=== PATIENT | female | born 1985 | race Caucasian/White ===

== ENCOUNTER 2016-12-02 18:27 | Emergency (ER) | payer OTHER ==
[2016-12-02 18:35] VITALS: O2SAT 97
[2016-12-02] MEDS ORDERED: LET GEL TOPICAL 1 EA SYR TP ONE ×2 (18:44→18:47)
--- NOTE | 2016-12-02 19:08 | EDPHY ---
H & P Stated Complaint: abrasion knee/left ankle inj Time Seen by Provider: 12/02/16 18:59 HPI/ROS: CHIEF COMPLAINT: Mechanical fall, left ankle injury HISTORY OF PRESENT ILLNESS: The patient presents to the ED with complaints of left ankle pain and swelling after mechanical fall. The patient fell forward striking her left knee and twisting her left ankle. The patient did not strike her head or lose consciousness. She did feel a "snap" in her left ankle with an inversion type movement. The patient denies additional injury. She has no complaints of headache, neck pain, back pain, chest pain, difficulty breathing or other acute traumatic complaints. The patient reports she has mild-to- moderate pain with ambulation. REVIEW OF SYSTEMS: A comprehensive 10 point review of systems is otherwise negative aside from elements mentioned in the history of present illness. Source: Patient Exam Limitations: No limitations - Personal History LMP (Females 10-55): Over 28 Days Ago - Medical/Surgical History PMH: Past medical history: Negative - Family History Significant Family History: No pertinent family hx - Social History Smoking Status: Never smoked - Physical Exam Exam: General Appearance: Alert, no distress Head: Atraumatic Eyes: Pupils equal, round, reactive ENT, Mouth: No hemotympanum, no oral trauma Neck: Nontender, trachea midline Respiratory: No chest wall tender, subcutaneous air, lungs clear bilaterally Cardiovascular: Regular rate and rhythm Abdomen: Abdomen is soft and nontender, pelvis stable Skin: Superficial abrasion to left knee Back: No midline T/L/S pain Extremities: Tenderness to palpation left lateral medial malleolus with associated soft tissue swelling Neurological: A&Ox3, normal motor function, normal sensory exam Constitutional: Initial Vital Signs Temperature (C) 36.8 C 12/02/16 18:31 Heart Rate 75 12/02/16 18:31 Respiratory Rate 22 H 12/02/16 18:31 Blood Pressure 148/90 H 12/02/16 18:31 O2 Sat (%) 97 12/02/16 18:31 O2 Delivery Mode Room Air Allergies/Adverse Reactions: acetaminophen [From Percocet] Allergy (Verified 12/02/16 18:31) oxycodone [From Percocet] Allergy (Verified 12/02/16 18:31) Home Medications: Medication Instructions Recorded NK [No Known Home Meds] 12/02/16 Medical Decision Making - Diagnostics Imaging Results: Imaging Impressions Ankle X-Ray 12/02/16 18:38 Impression: Negative left ankle series. ED Course/Re-evaluation: The patient presents to the ED with complaints of left ankle pain and swelling. Her x-ray demonstrates no evidence of an acute fracture. The patient did have a superficial abrasion to her left knee which was cleaned and dressed with antibiotic ointment. The patient will be placed in a Coello boot and given crutches. She is advised to follow up with our on-call orthopedic surgeon for any unimproved symptoms past 7-10 days. Differential Diagnosis: Differential diagnosis considered includes fracture, sprain, dislocation - Data Points Medications Given: Discontinued Medications Tetracaine/Epinephrine/Lidocaine (Let Gel Topical) 1 ea TP EDNOW ONE Stop: 12/02/16 18:48 Last Admin: 12/02/16 18:49 Dose: 1 ea Departure - Departure Disposition: Home, Routine, Self-Care Clinical Impression: Knee abrasion Qualifiers: Encounter type: sequela Laterality: left Qualified Code(s): S80.212S - Abrasion , left knee, sequela Ankle sprain Qualifiers: Encounter type: initial encounter Involved ligament of ankle: unspecified ligament Laterality: left Qualified Code(s): S93.402A - Sprain of unspecified ligament of left ankle, initial encounter Condition: Good Instructions: Ankle Sprain (ED), Abrasion (ED) Additional Instructions: 1. Crutches and Coello boot as needed for comfort. Weight bear as tolerated when walking with your left leg. 2. Please follow up with the orthopedic surgeon you have been referred to for any persistent pain or swelling past 7-10 days. 3. Tylenol and ibuprofen as needed for pain. Referrals: Hector Montgomery MD [Medical Doctor] - As per Instructions
[2016-12-02 19:42] VITALS: BP 136/75; PULSE 85; RESP 16; TEMP 98.4
== END 2016-12-02 19:41 | disposition home or self-care (01) ==
DX: S93.402A Sprain of unspecified ligament of left ankle, initial encounter (principal); S80.212A Abrasion, left knee, initial encounter; W01.198A Fall on same level from slipping, tripping and stumbling with subsequent striking against other object, initial encounter
CPT/HCPCS: L4386